=== PATIENT | male | born 1940 | race Caucasian/White ===

== ENCOUNTER → 2024-04-03 | Outpatient (CLI) | payer MEDICARE, OTHER ==
[~2024-04-03] MED LIST: ATOR20 PO; Adult Low Dose81 MG PO; CHOL10002 PO; CLOP75 PO; GLUCOSAMINE CH PO; Gas-X80 MG PO; Men's Multi-Vi1 EACH PO; NAPR220 PO; Prinivil10 MG PO
[2024-04-03 13:00] LABS: Protein, Urine Quantitative 17.3 mg/dL (0.0-11.9)
== END ==
LOC: LAB 09:10 → LAB SHORT 09:10
PROVIDERS: Internal Medicine Nephrology
DX: N18.30 Chronic kidney disease, stage 3 unspecified (principal); D63.1 Anemia in chronic kidney disease; N25.81 Secondary hyperparathyroidism of renal origin; E55.9 Vitamin D deficiency, unspecified; E29.1 Testicular hypofunction; R76.9 Abnormal immunological finding in serum, unspecified; R94.5 Abnormal results of liver function studies; R94.6 Abnormal results of thyroid function studies
CPT/HCPCS: 81050; 82043; 82570; 84156

== ENCOUNTER → 2024-10-14 | Outpatient (CLI) | payer MEDICARE, OTHER ==
[2024-10-14 13:47] LABS: BASOPHILS ABSOLUTE AUTO 0.02 K/mm3 (0.00-0.23); BASOPHILS PERCENT AUTO 0 % (0-2); EOSINOPHILS PERCENT AUTO 2 % (0-6); Hematocrit 44.2 % (37.0-53.0); Hemoglobin 15.6 g/dL (13.5-17.5); IMMATURE GRAN ABSOLUTE AUTO 0.01 K/mm3 (0.00-0.10); IMMATURE GRAN PERCENT AUTO 0 % (0-1); LYMPHOCYTES ABSOLUTE AUTO 0.68 K/mm3 (0.84-5.20); LYMPHOCYTES PERCENT AUTO 13 % (21-46); MONOCYTES ABSOLUTE AUTO 0.32 K/mm3 (0.16-1.47); MONOCYTES PERCENT AUTO 6 % (4-13); Mean Corpuscular HGB 31.6 pg (26.0-34.0); Mean Corpuscular HGB Conc 35.3 g/dL (31.5-36.5); Mean Corpuscular Volume 90 fL (80-100); Mean Platelet Volume 10.8 fL (9.1-12.4); NEUTROPHILS ABSOLUTE AUTO 4.07 K/mm3 (1.96-9.15); NEUTROPHILS PERCENT AUTO 78 % (41-73); Platelet Count 149 K/mm3 (150-400); RDW Coefficient Variation 12.6 % (11.7-14.2); RDW Standard Deviation 41.3 fL (35.1-46.3); Red Blood Cell Count 4.93 M/mm3 (4.30-5.90)
[2024-10-14 13:59] LABS: Albumin, Blood 4.4 g/dL (3.4-5.0); Albumin/Globulin Ratio 1.5 (0.8-1.8); Bilirubin, Total 0.8 mg/dL (0.1-1.0); Bun/Creatinine Ratio 17.1 (12.0-20.0); Calcium, Blood 9.6 mg/dL (8.5-10.1); Creatinine, Blood 1.29 mg/dL (0.60-1.20); Potassium, Blood 3.9 mmol/L (3.5-5.5); Total Protein, Blood 7.4 g/dL (6.4-8.2)
== END | disposition home or self-care (01) ==
LOC: LAB 13:44 → LAB SHORT 13:44
PROVIDERS: Physician Assistant Medical
DX: R42 Dizziness and giddiness (principal)
CPT/HCPCS: 80053; 85025

== ENCOUNTER → 2025-05-23 | Outpatient (CLI) | payer MEDICARE ==
[2025-05-23 19:07] LABS: Microalbumin, Urine Quant. 18.6 mg/L (0.000-20.000); Protein, Urine Quantitative 19.3 mg/dL (0.0-11.9)
== END ==
LOC: LAB SHORT 07:00 → LAB 07:00 → LAB FUT 05-21 14:35
PROVIDERS: Internal Medicine Nephrology
DX: N18.30 Chronic kidney disease, stage 3 unspecified (principal); D63.1 Anemia in chronic kidney disease; N25.81 Secondary hyperparathyroidism of renal origin; E55.9 Vitamin D deficiency, unspecified; E78.00 Pure hypercholesterolemia, unspecified; R76.9 Abnormal immunological finding in serum, unspecified; R94.5 Abnormal results of liver function studies; R94.6 Abnormal results of thyroid function studies; N40.1 Benign prostatic hyperplasia with lower urinary tract symptoms
CPT/HCPCS: 81050; 82043; 82570; 84156